=== PATIENT | female | born 1990 | race Two or more races ===

== ENCOUNTER 2017-11-09 15:38 | Inpatient (IN) | payer MEDICAID, OTHER ==
[~2017-11-09] VITALS: Ht 160 cm; Wt 59.0 kg
[2017-11-09] MEDS ORDERED: PANTOPRAZOLE 40 MG/10 ML VIAL IV STA (15:55)
[2017-11-09] MEDS ORDERED: SODIUM CHLORIDE 0.9% 500 ML IVB ONE (15:55)
[2017-11-09] MEDS ORDERED: ONDANSETRON HCL 4 MG/2 ML VIAL IV ONE (16:00)
[2017-11-09] MEDS ORDERED: MORPHINE SULFATE 8mg/ml INJ SDV IV ONE (16:00)
[2017-11-09 16:14] LABS: Basophils # (auto) 0 uL; Basophils % (auto) 0.1 % (0.0-2.0); Eosinophils # (auto) 0.1 uL; Eosinophils % (auto) 0.7 % (0.0-7.0); Hematocrit 39.2 % (36.0-46.0); Hemoglobin 13.2 g/dL (12.2-16.2); Lymphocytes # (auto) 1.3 uL; Lymphocytes % (auto) 17.1 % (10.0-50.0); Mean Corpuscular Hemoglobin 30.7 pg (28.0-32.0); Mean Corpuscular Hgb Conc. 33.6 g/dL (32.0-36.0); Mean Corpuscular Volume 91.4 fL (80.0-100.0); Monocytes # (auto) 0.4 uL; Monocytes % (auto) 4.8 % (0.0-12.0); Neutrophils # (auto) 5.8 uL; Neutrophils % (auto) 77.3 % (37.0-80.0); Nucleated Red Blood Cells % 0.1 %; Red Blood Cells 4.29 10^6/uL (4.0-5.20); Red Cell Distribution Width 14.1 % (11.8-14.3); White Blood Cell 7.5 10^3/uL (4.4-10.8)
[2017-11-09 16:20] LABS: Platelet Count (auto) 138 10^3/uL (140-450)
[2017-11-09 16:35] LABS: Albumin 3.8 g/dL (3.4-5.0); BUN/Creatinine Ratio 21.9; Bilirubin, Total 0.5 mg/dL (0.2-1.0); Calcium 8.7 mg/dL (8.5-10.1); Magnesium 1.9 mg/dL (1.6-2.6); Potassium 3.3 mmol/L (3.5-5.1); Total Protein 7.8 g/dL (6.4-8.2)
[2017-11-09] MEDS ORDERED: ONDANSETRON HCL 4 MG/2 ML VIAL IV PRN (19:15)
[2017-11-09] MEDS ORDERED: POTASSIUM CHL 10 Meq TABLET PO ONE (19:15)
[2017-11-09] MEDS ORDERED: TEMAZEPAM 15 MG CAP PO PRN (19:15)
[2017-11-09] MEDS ORDERED: ACETAMINOPHEN 325 MG TAB PO PRN (19:15)
[2017-11-09] MEDS ORDERED: HYDROcodone-ACET 5/325MG TAB PO PRN (19:15)
[2017-11-09] MEDS ORDERED: MORPHINE SULFATE 8mg/ml INJ SDV IV PRN (19:15)
[2017-11-09] MEDS ORDERED: cefTRIAXone 1GM/10ml IVPUSH 10 ML IV ONE (19:15)
[2017-11-09] MEDS ORDERED: DOCUSATE SOD 100 MG CAP PO PRN (19:15)
[2017-11-09 19:37] LABS: Prothrombin Time 10.7 sec (9.27-12.13)
[2017-11-09] MEDS: SODIUM CHLORIDE 0.9% 1,000 ML IV SCH (19:52)
[2017-11-09 21:34] VITALS: BP 108/61
[2017-11-09] MEDS: FAMOTIDINE 20 MG TAB PO SCH (22:01)
[2017-11-09] MEDS: metroNIDAZOLE 500MG/100ML 100 ML IV SCH (22:01)
[2017-11-09] MEDS: ASCORBIC ACID 500 MG TAB PO SCH (22:03)
[2017-11-09 23:00] VITALS: BP 108/61
[2017-11-10 04:52] VITALS: BP 103/60
[2017-11-10] MEDS: metroNIDAZOLE 500MG/100ML 100 ML IV SCH ×2 (06:22→15:46)
[2017-11-10 07:47] LABS: Basophils # (auto) 0 uL; Basophils % (auto) 0.2 % (0.0-2.0); Eosinophils # (auto) 0.2 uL; Eosinophils % (auto) 2.4 % (0.0-7.0); Hematocrit 36.8 % (36.0-46.0); Hemoglobin 12.4 g/dL (12.2-16.2); Lymphocytes # (auto) 1.6 uL; Lymphocytes % (auto) 24.5 % (10.0-50.0); Mean Corpuscular Hemoglobin 30.8 pg (28.0-32.0); Mean Corpuscular Hgb Conc. 33.8 g/dL (32.0-36.0); Mean Corpuscular Volume 91.2 fL (80.0-100.0); Monocytes # (auto) 0.5 uL; Monocytes % (auto) 7.1 % (0.0-12.0); Neutrophils # (auto) 4.2 uL; Neutrophils % (auto) 65.8 % (37.0-80.0); Nucleated Red Blood Cells % 0.1 %; Platelet Count (auto) 122 10^3/uL (140-450); Red Blood Cells 4.03 10^6/uL (4.0-5.20); Red Cell Distribution Width 14.4 % (11.8-14.3); White Blood Cell 6.4 10^3/uL (4.4-10.8)
[2017-11-10 08:12] LABS: Albumin 3.3 g/dL (3.4-5.0); BUN/Creatinine Ratio 21.2; Bilirubin, Total 0.3 mg/dL (0.2-1.0); Calcium 8.1 mg/dL (8.5-10.1); Potassium 3.6 mmol/L (3.5-5.1); Total Protein 6.8 g/dL (6.4-8.2)
[2017-11-10 09:00] VITALS: BP 104/67
[2017-11-10] MEDS ORDERED: cefTRIAXone 1GM/10ml IVPUSH 10 ML IV SCH (09:00)
[2017-11-10] MEDS: FAMOTIDINE 20 MG TAB PO SCH (09:48)
[2017-11-10] MEDS: ASCORBIC ACID 500 MG TAB PO SCH (09:49)
[2017-11-10] MEDS ORDERED: ZINC SULFATE 220 MG CAP PO SCH (10:00)
[2017-11-10] MEDS ORDERED: MULTIPLE VITAMIN TAB PO SCH (10:00)
[2017-11-10] MEDS: SODIUM CHLORIDE 0.9% 1,000 ML IV SCH (11:54)
[2017-11-10 13:00] VITALS: BP 97/64
[2017-11-10 17:00] VITALS: BP 114/70
== END 2017-11-10 18:05 | disposition left against medical advice (07) ==
LOC: ER 15:43 → OVERFLOW 15:44 → WEST WING 20:07
PROVIDERS: ADMIT Internal Medicine; ATTEND Internal Medicine
DX: K80.00 Calculus of gallbladder with acute cholecystitis without obstruction (principal); K83.0 Cholangitis; Z53.21 Procedure and treatment not carried out due to patient leaving prior to being seen by health care provider; Z90.49 Acquired absence of other specified parts of digestive tract
CPT/HCPCS: 36415; 76705; 80053; 82150; 83690; 83735; 84702; 85025; 85610; 87040; 94761; 96361; 96374; 96375; C9113; J2270; J2405; J3490